=== PATIENT | male | born 1965 | race Caucasian/White ===

== ENCOUNTER 2024-01-01 06:12 | Day surgery (SDC) | payer OTHER ==
[2023-12-22 10:17] VITALS: BMI 28.3
[2024-01-01] MEDS ORDERED: EPINEPHrine/PF 1 MG/1 ML (1:1,000) AMPULE ONE (07:04)
[2024-01-01] MEDS ORDERED: TRANEXAMIC ACID 1000 MG/10 ML VIAL ONE (07:04)
[2024-01-01] MEDS ORDERED: VANCOMYCIN 1,000 MG VIAL (RESTRICTED TO ID ONLY) ONE ×2 (07:04→08:04)
[2024-01-01] MEDS ORDERED: FENTANYL CITRATE/PF 50 MCG/ML VIAL ONE (07:21)
[2024-01-01] MEDS ORDERED: MIDAZOLAM HCL 2 MG/2 ML SINGLE DOSE VIAL ONE (07:21)
[2024-01-01] MEDS ORDERED: DEXAMETHASONE SOD PHOSPHATE/PF 10 MG/ML SDV ONE (07:21)
[2024-01-01] MEDS ORDERED: ROPIVACAINE HCL 0.5% 30ML VIAL ONE (07:22)
[2024-01-01] MEDS ORDERED: PROPOFOL 40 ML ONE (07:47)
[2024-01-01] MEDS ORDERED: SUCCINYLCHOLINE CHLORIDE 200 MG/10 ML SYRINGE ONE ×2 (07:47→10:43)
[2024-01-01] MEDS ORDERED: ROCURONIUM BROMIDE 50 MG/5 ML SYRINGE ONE ×2 (07:47→08:59)
[2024-01-01] MEDS ORDERED: ceFAZolin SODIUM 1 GM VIAL ONE (08:01)
[2024-01-01] MEDS ORDERED: ePHEDrine SULFATE 50 MG/1 ML AMPULE ONE (08:03)
[2024-01-01] MEDS ORDERED: PROPOFOL 20 ML ONE ×3 (09:49→10:43)
[2024-01-01] MEDS: VANCOMYCIN 1,000 MG VIAL (RESTRICTED TO ID ONLY) IVPB ONE (10:02)
[2024-01-01] MEDS ORDERED: ONDANSETRON 4 MG/2 ML VIAL IVPUSH PRN ×2 (10:11→11:10)
[2024-01-01] MEDS ORDERED: MAG HYDROX/AL HYDROX/SIMETH 30 ML UNIT-DOSE CUP PO PRN (10:11)
[2024-01-01] MEDS ORDERED: MAGNESIUM HYDROX 2400MG/30ML ORAL SUSPENSION 30 ML CUP PO PRN (10:11)
[2024-01-01] MEDS ORDERED: SUGAMMADEX SODIUM 200 MG/2 ML VIAL ONE (10:14)
[2024-01-01] MEDS ORDERED: oxyCODONE HCL 5 MG TABLET PO PRN ×3 (10:18→11:10)
[2024-01-01] MEDS ORDERED: ALBUTEROL SO4 0.083% IH SOL 2.5 MG/3 ML VIAL.NEB. NEB ONE (10:56)
[2024-01-01] MEDS: ALBUTEROL SO4 0.083% IH SOL 2.5 MG/3 ML VIAL.NEB. NEB ONE ×2 (11:00→13:29)
[2024-01-01] MEDS: ALBUTEROL SO4 2.5/IPRATROPIUM 0.5 INH SOL 3 ML VIAL.NEB. NEB ONE (11:10)
[2024-01-01] MEDS: ACETAMINOPHEN 1000 MG/100 ML BAG IVPB ONE (11:10)
[2024-01-01] MEDS ORDERED: IPRATROPIUM BR 0.02% 0.5 MG/2.5 ML VIAL.NEB. NEB ONE (11:10)
[2024-01-01] MEDS: CEFAZOLIN 2 GM in DEXTROSE 5%-WATER - 50 ML IVPB ONE (13:28)
[2024-01-01] MEDS: LACTATED RINGERS SOLUTION 1,000 ML IV SCH ×2 (13:28→13:30)
[2024-01-01] MEDS: ACETAMINOPHEN 500 MG TABLET (FP) PO SCH ×2 (13:29→17:24)
[2024-01-01] MEDS: CEFAZOLIN SODIUM 2 GM in DEXTROSE 5%-WATER 100 ML IVPB SCH (15:35)
[2024-01-01] MEDS: oxyCODONE HCL 5 MG TABLET PO PRN (16:36)
[2024-01-01] MEDS: KETOROLAC TROMETHAMINE 30 MG/1 ML VIAL IVPUSH PRN (16:36)
[2024-01-01 19:30] VITALS: RESP 18
[2024-01-01] MEDS: VANCOMYCIN/WATER FOR INJ (PEG) 1 GM/200 ML BAG IVPB ONE (19:58)
[2024-01-01] MEDS: GABAPENTIN 300 MG CAPSULE PO SCH (21:00)
[2024-01-01] MEDS: SENNOSIDES/DOCUSATE COMBO (SENNA PLUS) TABLET (UD) PO SCH (21:01)
[2024-01-02 06:57] VITALS: PULSE 79; TEMP 98.6
[2024-01-02] MEDS: PANTOPRAZOLE 40 MG TABLET PO SCH (09:18)
[2024-01-02] MEDS: ESCITALOPRAM OXALATE 20 MG TABLET PO SCH (09:19)
[2024-01-02] MEDS: ASPIRIN 81 MG CHEWABLE TABLETS PO SCH (09:19)
[2024-01-02] MEDS: MULTIVITAMINS (DAILY MVI) TABLET (FP) PO SCH (09:19)
[2024-01-02] MEDS: LOSARTAN POTASSIUM 50 MG TABLET PO SCH (09:20)
[2024-01-02] MEDS: amLODIPine BESYLATE 5 MG TABLET (FP) PO SCH (09:20)
[2024-01-02] MEDS ORDERED: PATIENT'S OWN MEDICATION (NON-FORMULARY) (Irbesartan [Avapro] 300 MG Tablet) PO SCH (10:00)
[2024-01-02 10:31] VITALS: BP 124/88
== END 2024-01-02 13:33 | disposition home or self-care (01) ==
LOC: FASUSAT 06:12 → SUATTDRO 06:12 → FM/S 13:11 → FASUSAT 01-02 13:33
PROC: 0RRJ0JZ Replacement of Right Shoulder Joint with Synthetic Substitute, Open Approach (ICD-10-PCS; principal; 2024-01-01 08:18)
DX: M75.121 Complete rotator cuff tear or rupture of right shoulder, not specified as traumatic (principal); M19.011 Primary osteoarthritis, right shoulder; X58.XXXA Exposure to other specified factors, initial encounter; Y92.9 Unspecified place or not applicable; Y93.9 Activity, unspecified
CPT/HCPCS: 23410; 23472; C1713; C1776; 73030-TC-RT-FY; 88305-TC; 88311-TC; 94760; 97116-GP; 97162-GP; C1763; C1889; J0131